=== PATIENT | female | born 1995 ===

== ENCOUNTER 2021-01-20 14:30 | Outpatient (CLI) | payer OTHER ==
--- NOTE | 2021-01-20 19:55 | XRAY Report ---
PROCEDURE: Knee 4 View RT INDICATIONS: R KNEE PX TECHNIQUE: 4 views of the right knee(s) were acquired. COMPARISON: None. FINDINGS: Bones: No fractures or dislocations. Mild right medial femoral tibial compartment joint space narrow ing and subchondral sclerosis is seen. No suspicious bony lesions. Soft tissues: No joint effusion. No suspicious soft tissue calcifications. 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 No fracture or dislocation. No significant joint effusion. Reviewed by: Vitaly Mac MD on 01/20/2021 7:53 PM PDT Approved by: Vitaly Mac MD on 01/20/2021 7:53 PM PDT Station ID: [id number]
== END 2021-01-20 23:59 | disposition home or self-care (01) ==
LOC: DI.N 14:30
PROVIDERS: ATTEND Orthopaedic Surgery
DX: M17.11 Unilateral primary osteoarthritis, right knee (principal)